=== PATIENT | female | born 1990 | race Caucasian/White ===

== ENCOUNTER → 2023-05-27 08:59 | Outpatient (REF) | payer OTHER, SELFPAY ==
--- NOTE | 2023-05-28 15:06 | EEG.RPT ---
Electroencephalogram Report
Recording
Date of EE05/27/23
Type of EEG: Ambulatory
Length of EEG recordin hours 41 minutes
Done with Video Recording: Yes
Patient Status: Outpatient
Recording Conditions: Awake and Drowsy
Hyperventilation Performed: Yes
Photic Stimulation Performed: No
Hand Dominance: Unknown
Report
AMBULATORY EEG SUMMARY
METHODS:
A 21 channel digitized electroencephalogram (EEG) was initiated in the [facility] Laboratory. The patient wore the device outside of the laboratory and returned after 24 hours for electrode and recorder removal.� The 10/20
international system of electrode placement was used with bipolar electrode montage recorded.� ECG was monitored. Duration was 11 hours and 41 minutes, after which there is no further EEG data.
IMPRESSION(S):
Quality
Good
Background
Mixed medium amplitude background of theta and alpha background in awake states
In maximal wakefulness there was a normal posterior dominant rhythm of 9-10 hz which attenuates with eye opening.
No background asymmetry noted.
Sleep
Drowsiness was suggested by slowing of the background rhythms
Stage I sleep was recorded
ECG:
Normal sinus rhythm
Photic stimulation
No activation
Abnormalities
None seen, no electrographic seizures or interical epileptiform discharges seen
Patient logs
During period of out with friends and not responding there were no epileptiform changes or electrographic seizure activity seen
During periods of losing track of time no epileptiform changes or electrographic seizure activity seen.
EEG CONCLUSION(S):
Unremarkable EEG for age during awake, drowsy, and sleeping states. No activation during photic stimulation.
CLINICAL CORRELATION:
A normal EEG may not rule out a diagnosis of epilepsy.
Noted periods in patient's logs of poor responsiveness and losing track of time did not show any epileptiform activity or electrographic seizure.
Clinical correlation required.
== END ==
LOC: RCS 08:59
PROVIDERS: ATTENDING PHYSICIAN Nurse Practitioner Adult Health; FAMILY PHYSICIAN Student in an Organized Health Care Education/Training Program
DX: R56.9 Unspecified convulsions (principal)
CPT/HCPCS: 95708

== ENCOUNTER 2023-05-27 17:55 | Emergency (ER) | payer OTHER, SELFPAY ==
[2023-05-27 17:58] VITALS: BP 155/114
[2023-05-27 18:17] LABS: Urine Albumin Trace (Neg - Trace); Urine Bilirubin Negative (Negative); Urine Character Slightly Cloudy (Clear); Urine Glucose 3+ (Negative); Urine Ketone Negative (Negative); Urine Leukocyte 2+ (Negative); Urine Nitrite Negative (Negative); Urine Occult Blood 4+ (Negative); Urine Urobilinogen Negative (Neg - 1+)
[2023-05-27 18:18] LABS: Urine Color Pink
[2023-05-27 18:20] LABS: HCG, Urine Qualitative Screen Negative
[2023-05-27 18:21] VITALS: BMI 34.9
[2023-05-27 18:26] VITALS: BP 137/99
[2023-05-27 18:32] LABS: Urine Squamous Cell >30 /LPF (Few)
[2023-05-27 18:34] LABS: Urine Red Blood Cell 16-20 /HPF (0-2)
[2023-05-27 18:35] LABS: Urine Bacteria Many (Negative)
[2023-05-27 18:36] LABS: Urine Yeast Few (Negative)
[2023-05-27 18:38] LABS: Urine Mucus Few
[2023-05-27 18:39] LABS: Urine Amorphous Seen
[2023-05-27 19:07] VITALS: BP 132/95
[2023-05-27 20:00] VITALS: BP 143/96
--- NOTE | 2023-05-27 20:10 | ED.GENMED ---
History of Present Illness
General
Chief Complaint: Seizure
Source: patient and family
Time Seen by Provider: 05/27/23 19:55
Travel History
Have you had any contact with someone who has COVID-19?: No
Do you have any symptoms of coronavirus? Fever > 100 degrees, chills, cough, shortness of breath, sore throat, loss of taste or smell, muscle aches, or headache?: No
History of Present Illness
History of Present Illness:
32-year-old female presents to the emergency room with her mom for evaluation after having an episode of staring and not responding to friends. Patient has been having similar episodes such as this. She is presently wearing a 24-hour EEG monitor
to evaluate these episodes. Patient also complaining of a headache. She states she has a history of migraines. She did not take medication for migraine because it is at home. EEG was ordered by neurology here. No episodes since this event while
she was out to lunch with friends.
Past History
Past History
ED Past Medical History: GERD, HTN, Seizures, Psychiatric (Anxiety, Depression, PTSD) and Other (absent Seizures, Migraines, Gastroparesis, UTI, Eczema, Anemia, )
ED Past Surgical History: None
Patient has exhibited threatening behavior?: No
PSI?: No
Social History
Tobacco: Non-smoker
Alcohol: Occasional
Drug: None
Personal: Single
Living: with family
Employment: Not employed
Family History
Family History: CAD
Phy Exam
Physical Exam
Physical Exam:
General: Awake, Alert, Oriented X3. No acute distress, flat affect
Vitals: unremarkable
Head: Atraumatic, EEG leads in place.
Eyes: Pupils equal, EOMI
Throat: Airway intact, no exudates
Neck: Trachea midline
Lungs: Clear and equal b/l
Heart: Regular rate, no murmurs
Abd: Soft, Nontender, No pulsatile mass
Neuro: Cranial nerves intact, muscle strength equal bilaterally, cerebellar exam normal
Skin: Warm, dry, no rash
Extremities: pulses equal b/l, no edema
Course
Orders/Labs/Results
Orders:
Orders
05/27/23 18:05
Test Result ONCE
05/27/23 18:09
, Urine Qualitative Screen [HCG, Urine Qualitative Screen] Urgent
Date Specimen was Collected: 05/27/23
Time Specimen was Collected: 18:05
Urinalysis Reflex To Culture Urgent
Date Specimen was Collected: 05/27/23
Time Specimen was Collected: 18:05
Urine Microscopic Reflex Cult Urgent
Urine Culture Urgent
YVETTE Source: U
Specimen Description:
Date Specimen was Collected: 05/27/23
Time Specimen was Collected: 18:05
05/27/23 20:08
Rizatriptan Orally Disintegrat [Maxalt Pack Out Operator (Orally Disintegrating)] 10 mg PO ONCE ONE
05/27/23 20:19
Complete Blood Count/With Diff Urgent
Comprehensive Metabolic Panel Urgent
Depakane Urgent
Abnormal Lab Results
05/27/23 05/27/23
18:09 20:19
Hct 35.8 L %
(37.0-47.0)
Absolute Lymphs (auto) 3.7 H 10^3/uL
(1.2-3.4)
Glucose 161 H mg/dl
(70-99)
Ur Occult Blood Reflex 4+ A
(Negative)
Leukocyte Esterase Rfl 2+ A
(Negative)
Urine RBC 16-20 A /HPF
(0-2)
Urine Bacteria (Reflex) Many A
(Negative)
Urine Yeast Few A
(Negative)
Urine Glucose 3+ A
(Negative)
Valproic Acid 11.2 L ug/ml
(50.0-120.0)
05/27/23 20:19
05/27/23 20:19
Vital Signs
Initial and Last Documented VS:
Initial Vital Signs
Temp Pulse Resp BP Pulse Ox
98.2 F 93 18 155/114 98
05/27/23 17:58 05/27/23 17:58 05/27/23 17:58 05/27/23 17:58 05/27/23 17:58
Last Documented Vital Signs
Temp Pulse Resp BP Pulse Ox
98.2 F 91 18 143/96 97
05/27/23 17:58 05/27/23 20:30 05/27/23 20:30 05/27/23 20:00 05/27/23 20:30
MDM/Problems Addressed
Differential Diagnosis Includes:
Absence seizure's, pseudoseizure,
MDM/Problems Addressed:
Patient has no acute abnormalities on neurologic exam. She was complaining of a headache which did improve with Maxalt. Patient has a 24-hour EEG on. This will have to be downloaded to determine if today's event was truly a seizure. However she
appears quite comfortable and stable and can follow-up as an outpatient.
*Pulse Oximetry
Patient hypoxic: no
*Critical Care Note
Total Time (30-74mins, 75-104mins- exclusive of procedures): Not Applicable
Data Reviewed
Review of Other/Old Records Reveals: Other (Neurology office notes. Document history of nonepileptic events.)
Patient Management
Social determinants of health affecting care: Strong social support
ED Attending Note
-
Portions of this chart may have been created with voice recognition software.� Occasional wrong word or��sound alike� substitutions may have occurred due to the inherent limitations of voice recognition software.
Discharge Plan
Departure
Patient Disposition: Home (Routine Discharge)
Date of Disposition: 05/27/23
Time of Disposition: 21:27
Patient with high blood pressure during this ER visit?: Yes
Condition: Good
Discharge Problem:
brief alteration in alertness
Instructions: Seizures, Adult (DC), BLOOD PRESSURE
Prescriptions:
No Action
insulin glargine [Lantus Solostar U-100 Insulin] 300 UNITS/3 ML insulin pen
8 units SC HS
Rx Instructions:
SSI
glipizide 5 mg Tablet
5 mg PO BID
losartan 50 mg Tablet
50 mg PO HS
omeprazole 20 mg Capsule,Delayed Release(Dr/Ec)
20 mg PO DAILY
aripiprazole [Abilify] 10 mg Tablet
10 mg PO DAILY
hydroxyzine HCl 25 mg Tablet
25 mg PO DAILY
ondansetron [Zofran ODT] 4 mg Tablet,Disintegrating
4 mg PO PRN PRN (Reason: nausea)
duloxetine [Cymbalta] 60 mg Capsule,Delayed Release(Dr/Ec)
60 mg PO DAILY
divalproex 250 mg tablet,delayed release (DR/EC)
500 mg PO HS
divalproex 500 mg tablet,delayed release (DR/EC)
500 mg PO HS
ondansetron 4 mg tablet,disintegrating
4 mg PO Q8H PRN (Reason: nausea and vomiting) 3 Days Qty: 9 0RF
divalproex [Depakote] 500 mg tablet,delayed release (DR/EC)
500 mg PO TID Qty: 90 0RF
Referrals:
Debby Christianson MD [Family Provider] -
Activity Restrictions/Additional Instructions:
I am not sure the episode today was a seizure but your neurologist can download your eeg and see if there were any changes consistent with a seizure.
Interventions
Interventions:
*Risk Screen - Suicide Last Done: 05/27/23 17:58
*General Assessment Last Done: 05/27/23 17:58
*Neglect/Abuse Screening Last Done: 05/27/23 17:58
ED- Fall Risk Assessment Last Done: 05/27/23 18:51
*ED COVID-19 Vaccine History Last Done: 05/27/23 18:04
*Nursing Disposition Last Done: 05/27/23 21:42
ED- Cardiac Assessment Last Done: 05/27/23 18:21
ED- Neurological Assessment Last Done: 05/27/23 18:21
ED- Pulmonary Assessment Last Done: 05/27/23 18:21
Discharge Date and Time
Discharge Date/Time: 05/27/23 21:43
[2023-05-27 20:25] LABS: % Basophils 0.4 % (0-2); % Eosinophils 0.8 % (0-6); % Immature Granulocytes 0.2 % (0-0.5); % Lymphocytes 44.1 % (20.5-51.1); % Monocytes 7.2 % (1.7-9.3); % Neutrophils 47.3 % (42.2-75.2); Absolute Eosinophils 0.1 10^3/uL (0-0.7); Absolute Lymphocytes 3.7 10^3/uL (1.2-3.4); Absolute Monocytes 0.6 10^3/uL (0.1-0.6); Hematocrit 35.8 % (37.0-47.0); Mean Corp Hgb Conc. 36.3 g/dL (33.0-37.0); Mean Corpuscular Hgb 30.6 pg (27.0-31.0); Mean Corpuscular Volume 84.2 fL (81.0-99.0); Mean Platelet Volume 8.8 fL (7.4-10.4); Nucleated Red Blood Cells % 0 %; Platelet Count 334 10^3/uL (130-400); Red Blood Cell Count 4.25 10^6/uL (4.20-5.40); Red Cell Dist. Width 12.8 % (11.5-14.5); White Blood Cell Count 8.4 10^3/uL (4.8-10.8)
[2023-05-27] MEDS: MAXALT MLT (ORALLY DISINTEGRATING) 10 MG PO (20:31)
[2023-05-27 20:42] LABS: ALT (SGPT) 12 U/L (0-35); AST (SGOT) 17 U/L (14-36); Albumin 3.8 g/dl (3.5-5.0); Alkaline Phosphatase 58 U/L (38-126); Blood Urea Nitrogen 15 mg/dl (7-17); Calcium 9.6 mg/dl (8.4-10.2); Carbon Dioxide 27 mmol/L (22-30); Chloride 98 mmol/L (98-107); Estimated Creatinine Clearance > 125 ml/min; Glucose 161 mg/dl (70-99); Potassium 3.9 mmol/L (3.5-5.1); Sodium 136 mmol/L (135-145); Total Bilirubin 0.4 mg/dl (0.2-1.3); Total Protein 6.5 g/dl (6.3-8.2); eGFR > 60.00
[2023-05-27 20:48] LABS: Depakane 11.2 ug/ml (50.0-120.0)
== END 2023-05-27 21:43 | disposition home or self-care (01) ==
LOC: EMR 17:55
PROVIDERS: Emergency Medicine; EMERGENCY PHYSICIAN Emergency Medicine; FAMILY PHYSICIAN Student in an Organized Health Care Education/Training Program
DX: R40.4 Transient alteration of awareness (principal); R51.9 Headache, unspecified; R56.9 Unspecified convulsions; I10 Essential (primary) hypertension
CPT/HCPCS: 99283; 80053; 80164; 81003; 81015; 81025; 85025; 87086

== ENCOUNTER 2023-06-05 22:14 | Emergency (ER) | payer OTHER, SELFPAY ==
[2023-06-05 22:17] VITALS: BP 139/100
[2023-06-05 23:12] LABS: Glucose - Point of Care 317 mg/dl (70-99)
--- NOTE | 2023-06-06 00:08 | ED.GENMED ---
History of Present Illness
General
Chief Complaint: Suicidal Ideation
Source: patient, previous hospital records (Several recent ED visits with concerns for absence seizures versus pseudoseizure; hyperglycemia without DKA) and other (302 petition filed by mother)
Exam Limitations: none
Time Seen by Provider: 06/05/23 22:18
Nursing documentation reviewed up to this point in time: agreed with
Travel History
Have you had any contact with someone who has COVID-19?: No
Do you have any symptoms of coronavirus? Fever > 100 degrees, chills, cough, shortness of breath, sore throat, loss of taste or smell, muscle aches, or headache?: No
History of Present Illness
History of Present Illness:
This is a 32-year-old female with history of insulin requiring diabetes, history of anxiety/depression, history of absence seizure's. He resides at home with her parents.
She admits to significant ongoing stress along with recent break-up with her boyfriend. She voiced to her mother geena that she wanted to kill herself but no definitive plan and no prior history of suicide attempt.
Mom filed 302 tonight.
Patient has history of voicing similar wish without specific plans and again, no prior history of suicide attempt.
She has had previous 302 commitment most recently July 2022.
More recently she has completed a partial program at [facility] and currently sees a counselor once a week through [facility].
She adamantly denies suicidal thoughts or plan and is unsure why she stated she wanted to kill herself geena.
She does admit to moderate ongoing stress and believes she would benefit with increased counseling weekly and would be agreeable to resuming partial program at [facility].
She denies alcohol nor drug use.
She denies risk of , last menstrual period May 24, normal and on time.
She does admit that her blood sugars 'have been up-and-down' sometimes in the 300s. No prior history of DKA. No recent URIs.
She follows with an central service tech.
She also follows with neurology, Dr. Diaz with concern for [place] seizures.
She wore a 24-hour EEG May 27. Thus far has not received results.
Past History
Past History
ED Past Medical History: GERD, HTN, Seizures, Psychiatric (Anxiety, Depression, PTSD) and Other (absent Seizures, Migraines, Gastroparesis, UTI, Eczema, Anemia, )
ED Past Surgical History: None
Patient has exhibited threatening behavior?: No
PSI?: No
Social History
Tobacco: Non-smoker
Alcohol: Occasional
Drug: None
Personal: Single
Living: with family
Employment: Not employed
Family History
Family History: CAD
Phy Exam
Physical Exam
Physical Exam:
GENERAL: Alert , in no apparent distress. 32-year-old woman appears her stated age, awake and alert, pleasant, appears in no acute distress. Sitting a pink colored, liquid drink and a large Angelica cup.
EYE: anicteric
NECK: Supple, nontender, no meningismus, no significant adenopathy.
ENT: oral mucosa is moist. mo rhinorrhea.
CARDIAC: Regular rate and rhythm. no murmur.
LUNGS: Clear breath sounds bilaterally, no acute respiratory distress, no wheezes/rales/rhonchi
ABDOMEN: Soft, nondistended, without focal tenderness, no r/g, normoactive BS.
NEUROLOGICAL: Alert and oriented x3, no focal neuro deficits. Gait is philip and steady.
SKIN: Warm and dry, normal color, skin intact. No rash.
MUSCULOSKELETAL: No C/C/E. peripheral pulses are full and equal b/l. No palpable tenderness.
PSYCH: Mildly blunted affect. Adamantly denies suicidal thoughts or plan. Admits to moderate ongoing stress but is goal oriented. Speech is clear.
Course
Orders/Labs/Results
Orders:
Orders
06/05/23 23:04
Bedside Glucose- Treatment ONCE
02/14/24 23:51
Insulin Aspart [NOVOLOG vial] 5 units SC NOW STA
Insulin Glargine Lantus [Lantus] 0 units Subcutaneous Insulin Syringe [Syringe-Insulin] 0 unit SC NOW
Abnormal Lab Results
06/05/23
23:10
POC Glucose 317 H mg/dl
(70-99)
Vital Signs
Initial and Last Documented VS:
Initial Vital Signs
Temp Pulse Resp BP Pulse Ox
97.5 F 95 18 139/100 95
06/05/23 22:17 06/05/23 22:17 06/05/23 22:17 06/05/23 22:17 06/05/23 22:17
Last Documented Vital Signs
Temp Pulse Resp BP Pulse Ox
97.5 F 95 18 139/100 95
06/05/23 22:17 06/05/23 22:17 06/05/23 22:17 06/05/23 22:17 06/05/23 22:17
MDM/Problems Addressed
Differential Diagnosis Includes:
Patient presents for involuntary psychiatric evaluation after voicing wish without definitive plan.
History of similar in the past, again without definitive plan and no prior history of suicide attempts.
She continues to adamantly denies suicidal thoughts nor plan.
She does have longstanding history of anxiety, depression, PTSD, currently follows with [facility] with recent completion of outpatient partial program at [facility].
Awaiting telepsychiatry evaluation.
Patient has history of insulin requiring diabetes, generally poorly controlled with random blood sugars running in the 200s to 300s.
Unremarkable laboratory studies May 27 with blood sugar of 161, no evidence of acidosis May 27 as well as May 05 of this year and April 29 of this year.
She has history of epilepsy, absence seizures, following with neurology and recently underwent outpatient EEG. She is awaiting results.
No reports of recent seizure activity, at least over the past week. No recent falls.
Will check Accu-Chek now. At this point no indication for other laboratory studies.
*Critical Care Note
Total Time (30-74mins, 75-104mins- exclusive of procedures): Not Applicable
Update Note
Update Note:
06/06/2023 0015 AM
Patient continues to deny suicidal thoughts or plan.
She has been evaluated by telepsychiatrist who does not believe patient is a threat to herself and does not recommend upholding 302.
Parents are aware and en route to the hospital to take the patient home.
Patient is agreeable to partial program; [facility] crisis counselor has referred patient to [facility] for follow-up.
Accu-Chek moderately elevated at 317. Patient has had similar elevations noted previously in fact her random blood sugars generally run in the 200s to 300s. Previous labs have shown no evidence of acidosis and clinically patient is well in
appearance.
Recommend she follow-up with her PCP as well as central service tech regarding her diabetes. No indication for urgent correction/intervention at this time.
Follow-up with [facility] and continue with counseling at [facility].
ED Attending Note
-
Portions of this chart may have been created with voice recognition software.� Occasional wrong word or��sound alike� substitutions may have occurred due to the inherent limitations of voice recognition software.
Discharge Plan
Departure
Patient Disposition: Home (Routine Discharge)
Date of Disposition: 06/06/23
Time of Disposition: 00:19
Patient with high blood pressure during this ER visit?: No
Condition: Good
Discharge Problem:
involuntary psychiatric evaluation, Poorly controlled diabetes mellitus
Instructions: Carb counting for adults with diabetes, Suicide Prevention
Prescriptions:
No Action
insulin glargine [Lantus Solostar U-100 Insulin] 300 UNITS/3 ML insulin pen
8 units SC HS
Rx Instructions:
SSI
glipizide 5 mg Tablet
5 mg PO BID
losartan 50 mg Tablet
50 mg PO HS
omeprazole 20 mg Capsule,Delayed Release(Dr/Ec)
20 mg PO DAILY
aripiprazole [Abilify] 10 mg Tablet
10 mg PO DAILY
hydroxyzine HCl 25 mg Tablet
25 mg PO DAILY
ondansetron [Zofran ODT] 4 mg Tablet,Disintegrating
4 mg PO PRN PRN (Reason: nausea)
duloxetine [Cymbalta] 60 mg Capsule,Delayed Release(Dr/Ec)
60 mg PO DAILY
divalproex 250 mg tablet,delayed release (DR/EC)
500 mg PO HS
divalproex 500 mg tablet,delayed release (DR/EC)
500 mg PO HS
ondansetron 4 mg tablet,disintegrating
4 mg PO Q8H PRN (Reason: nausea and vomiting) 3 Days Qty: 9 0RF
divalproex [Depakote] 500 mg tablet,delayed release (DR/EC)
500 mg PO TID Qty: 90 0RF
Referrals:
Debby Christianson MD [Family Provider] - Call in 1-3 days for appt
Interventions
Interventions:
*Risk Screen - Suicide Last Done: 06/05/23 22:17
*General Assessment Last Done: 06/05/23 22:17
*Neglect/Abuse Screening Last Done: 06/05/23 22:17
*ED COVID-19 Vaccine History Last Done: 06/05/23 22:17
*Nursing Disposition Last Done: 06/06/23 00:40
ED-Psychological Assessment Last Done: 06/05/23 22:54
Discharge Date and Time
Discharge Date/Time: 06/06/23 00:41
== END 2023-06-06 00:41 | disposition home or self-care (01) ==
LOC: EMR 22:14
PROVIDERS: EMERGENCY PHYSICIAN Emergency Medicine; FAMILY PHYSICIAN Student in an Organized Health Care Education/Training Program
DX: R45.851 Suicidal ideations (principal); E11.65 Type 2 diabetes mellitus with hyperglycemia; Z73.3 Stress, not elsewhere classified; F32.A Depression, unspecified; F41.9 Anxiety disorder, unspecified; G40.A09 Absence epileptic syndrome, not intractable, without status epilepticus; I10 Essential (primary) hypertension; K21.9 Gastro-esophageal reflux disease without esophagitis; G43.909 Migraine, unspecified, not intractable, without status migrainosus; F43.10 Post-traumatic stress disorder, unspecified; K31.84 Gastroparesis; D64.9 Anemia, unspecified; Z79.4 Long term (current) use of insulin; Z87.440 Personal history of urinary (tract) infections; Z88.8 Allergy status to other drugs, medicaments and biological substances
CPT/HCPCS: 99284; 82962

== ENCOUNTER 2023-06-08 05:59 | Emergency (ER) | payer OTHER, SELFPAY ==
[2023-06-08 05:59] VITALS: BMI 31.8
[2023-06-08 06:14] VITALS: BP 145/101
[2023-06-08 06:40] LABS: Glucose - Point of Care 310 mg/dl (70-99)
--- NOTE | 2023-06-08 06:58 | ED.GENMED ---
History of Present Illness
General
Chief Complaint: Blood Sugar Problem
Source: patient
Time Seen by Provider: 06/08/23 06:30
Travel History
Have you had any contact with someone who has COVID-19?: No
Do you have any symptoms of coronavirus? Fever > 100 degrees, chills, cough, shortness of breath, sore throat, loss of taste or smell, muscle aches, or headache?: No
History of Present Illness
History of Present Illness:
32-year-old female presents to the emergency room with multiple complaints. She states her blood sugars have been high despite taking her insulin. She feels achy and nauseous and just unwell. Patient has not actually vomited. No known fever.
She is not short of breath.
Past History
Past History
ED Past Medical History: GERD, HTN, Seizures, Psychiatric (Anxiety, Depression, PTSD) and Other (absent Seizures, Migraines, Gastroparesis, UTI, Eczema, Anemia, )
ED Past Surgical History: None
Patient has exhibited threatening behavior?: No
PSI?: No
Social History
Tobacco: Non-smoker
Alcohol: Occasional
Drug: None
Personal: Single
Living: with family
Employment: Not employed
Family History
Family History: CAD
Phy Exam
Physical Exam
Physical Exam:
General: Awake, Alert, Oriented X3. No acute distress, appears chronically ill
Vitals: unremarkable
Head: Atraumatic
Eyes: Pupils equal, EOMI
Throat: Airway intact, no exudates
Neck: Trachea midline
Lungs: Clear and equal b/l
Heart: Regular rate, no murmurs
Abd: Soft, Nontender, No pulsatile mass
Neuro: Nonfocal
Skin: Warm, dry, no rash
Extremities: pulses equal b/l, no edema
Course
Orders/Labs/Results
Orders:
Orders
06/08/23 06:53
0.9% Sodium Chloride 1000 ml [Nss] 1,000 ml IV BOLUS
06/08/23 06:54
Test Result ONCE
06/08/23 07:08
Basic Metabolic Panel Urgent
COVID-19 Antigen Urgent
Source: Nasal Swab
Complete Blood Count/With Diff Urgent
HCG, Serum Qualitative Screen Urgent
Influenza A+B Rapid Molecular Urgent
YVETTE Source: Nasal Swab
Specimen Description:
Abnormal Lab Results
06/08/23 06/08/23 06/08/23
06:38 07:08 08:53
Hct 36.9 L %
(37.0-47.0)
Sodium 131 L mmol/L
(135-145)
Glucose 324 H mg/dl
(70-99)
POC Glucose 310 H mg/dl 279 H mg/dl
(70-99) (70-99)
06/08/23 07:08
06/08/23 07:08
Vital Signs
Initial and Last Documented VS:
Initial Vital Signs
Temp Pulse Resp BP Pulse Ox
98.8 F 94 18 145/101 95
06/08/23 06:14 06/08/23 06:14 06/08/23 06:14 06/08/23 06:14 06/08/23 06:14
Last Documented Vital Signs
Temp Pulse Resp BP Pulse Ox
98.8 F 94 18 123/82 100
06/08/23 06:14 06/08/23 06:14 06/08/23 06:14 06/08/23 08:05 06/08/23 08:45
MDM/Problems Addressed
Differential Diagnosis Includes:
DKA, COVID, influenza, other viral syndrome, dehydration
MDM/Problems Addressed:
Patient has normal white count, normal anion gap. Glucose is mildly elevated at 324. However no evidence of DKA. Father came to visit with patient. She became upset about her mother not being here. Patient pulled out her IV and down demanding
to leave. No reason to keep her against her well.
*Pulse Oximetry
Patient hypoxic: no
*Critical Care Note
Total Time (30-74mins, 75-104mins- exclusive of procedures): Not Applicable
ED Attending Note
-
Portions of this chart may have been created with voice recognition software.� Occasional wrong word or��sound alike� substitutions may have occurred due to the inherent limitations of voice recognition software.
Discharge Plan
Departure
Patient Disposition: Home (Routine Discharge)
Date of Disposition: 06/08/23
Time of Disposition: 09:07
Patient with high blood pressure during this ER visit?: No
Condition: Good
Discharge Problem:
Hyperglycemia
Prescriptions:
No Action
insulin glargine [Lantus Solostar U-100 Insulin] 300 UNITS/3 ML insulin pen
8 units SC HS
Rx Instructions:
SSI
glipizide 5 mg Tablet
5 mg PO BID
losartan 50 mg Tablet
50 mg PO HS
omeprazole 20 mg Capsule,Delayed Release(Dr/Ec)
20 mg PO DAILY
aripiprazole [Abilify] 10 mg Tablet
10 mg PO DAILY
hydroxyzine HCl 25 mg Tablet
25 mg PO DAILY
ondansetron [Zofran ODT] 4 mg Tablet,Disintegrating
4 mg PO PRN PRN (Reason: nausea)
duloxetine [Cymbalta] 60 mg Capsule,Delayed Release(Dr/Ec)
60 mg PO DAILY
divalproex 250 mg tablet,delayed release (DR/EC)
500 mg PO HS
divalproex 500 mg tablet,delayed release (DR/EC)
500 mg PO HS
ondansetron 4 mg tablet,disintegrating
4 mg PO Q8H PRN (Reason: nausea and vomiting) 3 Days Qty: 9 0RF
divalproex [Depakote] 500 mg tablet,delayed release (DR/EC)
500 mg PO TID Qty: 90 0RF
Referrals:
Iwona Alvarez DO [Family Provider] -
Interventions
Interventions:
*Risk Screen - Suicide Last Done: 06/08/23 06:52
*General Assessment Last Done: 06/08/23 06:14
*Neglect/Abuse Screening Last Done: 06/08/23 06:52
ED- Fall Risk Assessment Last Done: 06/08/23 06:14
*ED COVID-19 Vaccine History Last Done: 06/08/23 06:14
*Nursing Disposition Last Done: 06/08/23 09:10
ED- Neurological Assessment Last Done: 06/08/23 06:52
Discharge Date and Time
Discharge Date/Time: 06/08/23 09:11
[2023-06-08 07:05] VITALS: BP 124/87
[2023-06-08] MEDS: NSS 1000 IV (07:11)
[2023-06-08 07:23] LABS: % Basophils 0.6 % (0-2); % Eosinophils 0.6 % (0-6); % Immature Granulocytes 0.3 % (0-0.5); % Lymphocytes 30.4 % (20.5-51.1); % Monocytes 6.9 % (1.7-9.3); % Neutrophils 61.2 % (42.2-75.2); Absolute Monocytes 0.5 10^3/uL (0.1-0.6); Absolute Neutrophils 4.1 10^3/uL (1.4-6.5); Hematocrit 36.9 % (37.0-47.0); Mean Corp Hgb Conc. 35.2 g/dL (33.0-37.0); Mean Corpuscular Hgb 29.8 pg (27.0-31.0); Mean Corpuscular Volume 84.6 fL (81.0-99.0); Mean Platelet Volume 9.4 fL (7.4-10.4); Nucleated Red Blood Cells % 0 %; Platelet Count 300 10^3/uL (130-400); Red Blood Cell Count 4.36 10^6/uL (4.20-5.40); Red Cell Dist. Width 12.5 % (11.5-14.5); White Blood Cell Count 6.7 10^3/uL (4.8-10.8)
[2023-06-08 07:28] LABS: HCG, Serum Qualitative Screen Negative
[2023-06-08 07:30] LABS: Blood Urea Nitrogen 15 mg/dl (7-17); Calcium 9.3 mg/dl (8.4-10.2); Carbon Dioxide 27 mmol/L (22-30); Chloride 100 mmol/L (98-107); Estimated Creatinine Clearance > 125 ml/min; Glucose 324 mg/dl (70-99); Potassium 4.6 mmol/L (3.5-5.1); Sodium 131 mmol/L (135-145); eGFR > 60.00
[2023-06-08 08:05] VITALS: BP 123/82
[2023-06-08 08:13] LABS: COVID-19 Antigen Negative (Negative)
[2023-06-08 08:55] LABS: Glucose - Point of Care 279 mg/dl (70-99)
== END 2023-06-08 09:11 | disposition home or self-care (01) ==
LOC: EMR 05:59
PROVIDERS: EMERGENCY PHYSICIAN Emergency Medicine; FAMILY PHYSICIAN Family Medicine
DX: E11.65 Type 2 diabetes mellitus with hyperglycemia (principal)
CPT/HCPCS: 99284; 96360; 80048; 82962; 84703; 85025; 87502; 87811

== ENCOUNTER 2023-08-03 09:17 | Emergency (ER) | payer OTHER, SELFPAY ==
[2023-08-03 09:19] VITALS: BP 148/102
[2023-08-03 09:23] LABS: Glucose - Point of Care 163 mg/dl (70-99)
[2023-08-03 09:54] VITALS: BMI 33.2
--- NOTE | 2023-08-03 10:02 | ED.GENMED ---
History of Present Illness
General
Chief Complaint: Blood Sugar Problem
Source: patient and family
Time Seen by Provider: 08/03/23 09:29
Travel History
Have you had any contact with someone who has COVID-19?: No
Do you have any symptoms of coronavirus? Fever > 100 degrees, chills, cough, shortness of breath, sore throat, loss of taste or smell, muscle aches, or headache?: No
History of Present Illness
History of Present Illness:
32-year-old female with past medical history of insulin-dependent diabetes, hypertension, migraine disorder, GERD, anxiety/depression/PTSD presenting to the emergency department for evaluation of nausea/vomiting that started this morning. Patient
has been concerned because her blood sugars have been more elevated than usual noting that she has had readings as high as 340. She is also noted polyuria and polydipsia with this. Triage noted that patient was recently at [facility]
however upon questioning patient states that this was more due to psychiatric illness as opposed to complications from her diabetes although she did note that her blood sugars were difficult to control while she was at [facility]. Patient denies
any fevers, chills, rigors, dysuria, cloudy or dark urine/malodorous urine, chest pain, shortness of breath or any other concerns
Past History
Past History
ED Past Medical History: GERD, HTN, Seizures, Psychiatric (Anxiety, Depression, PTSD) and Other (absent Seizures, Migraines, Gastroparesis, UTI, Eczema, Anemia, )
ED Past Surgical History: None
Patient has exhibited threatening behavior?: No
PSI?: No
Social History
Tobacco: Non-smoker
Alcohol: Occasional
Drug: None
Personal: Single
Living: with family
Employment: Not employed
Family History
Family History: CAD
Review of Systems
Review of Systems
All Other Systems: ROS reviewed and negative except as documented in HPI and ROS
Phy Exam
Physical Exam
Physical Exam:
GENERAL: Alert , in no apparent distress but does have an anxious affect
EYE: clear conjunctiva b/l
HEAD: NCAT
ENT: o/p clr, mmm.
CARDIAC: Regular rate and rhythm .
LUNGS: Clear breath sounds bilaterally, no acute respiratory distress, no wheezes/rales/rhonchi
ABDOMEN: Soft, without focal tenderness, no r/g, no cvat
NEUROLOGICAL: Alert and oriented
SKIN: Warm and dry, skin intact.
MUSCULOSKELETAL: No edema, well perfused.
PSYCH: Normal and appropriate interaction.
Scores
Heart Failure Risk
Heart Failure Risk Score: Not Applicable
Heart Score for Chest Pain Patients
STEMI patient?: Not applicable
Withdrawal Assessment of Alcohol
Withdrawal Assessment Completed?: Not applicable
Course
Orders/Labs/Results
Orders:
Orders
08/03/23 09:53
0.9% Sodium Chloride 1000 ml [Nss] 1,000 ml IV BOLUS
Ondansetron Injectable [Zofran] 4 mg IV NOW STA
08/03/23 09:54
Test Result ONCE
08/03/23 10:30
Complete Blood Count/With Diff Urgent
Comprehensive Metabolic Panel Urgent
HCG, Serum Qualitative Screen Urgent
Lipase Urgent
TSH Urgent
Urinalysis Reflex To Culture Urgent
Date Specimen was Collected: 08/03/23
Time Specimen was Collected: 10:03
Urine Microscopic Reflex Cult Urgent
Urine Culture Urgent
YVETTE Source: U
Specimen Description:
Date Specimen was Collected: 08/03/23
Time Specimen was Collected: 10:03
Abnormal Lab Results
08/03/23 08/03/23
09:22 10:30
BUN 20 H mg/dl
(7-17)
Creatinine 0.5 L mg/dL
(0.6-1.0)
Glucose 125 H mg/dl
(70-99)
Urine Ketones 1+ A
(Negative)
Leukocyte Esterase Rfl Trace A
(Negative)
Urine Bacteria (Reflex) Moderate A
(Negative)
Urine Yeast Moderate A
(Negative)
Urine Glucose Trace A
(Negative)
POC Glucose 163 H mg/dl
(70-99)
08/03/23 10:30
08/03/23 10:30
Vital Signs
Initial and Last Documented VS:
Initial Vital Signs
Temp Pulse Resp BP Pulse Ox
98.4 F 109 18 148/102 98
08/03/23 09:19 08/03/23 09:19 08/03/23 09:19 08/03/23 09:19 08/03/23 09:19
Last Documented Vital Signs
Temp Pulse Resp BP Pulse Ox
98.4 F 91 14 116/73 99
08/03/23 09:19 08/03/23 12:59 08/03/23 12:59 08/03/23 12:59 08/03/23 12:59
MDM/Problems Addressed
Differential Diagnosis Includes:
DKA, HHNK, urinary tract infection, exacerbation of diabetic gastroparesis, anxiety/depression
MDM/Problems Addressed:
32-year-old female present emergency department for evaluation of nausea and vomiting that occurred this morning, patient concern for possible diabetic complication since her blood sugars have been elevated over the last few weeks. Recent admit for
psychiatric illness at [facility] but was discharged 2 weeks ago. Patient reports good compliance with her insulin. On arrival here [id number] glucose is 163. Patient notes that she did take her insulin this morning prior to coming to the
emergency department. Will check labs, urinalysis, hCG. Fluids and Zofran ordered for symptomatic control. Reassessment following.
Chronic conditions affecting care: DM
Acute Exacerbation and/or Progression of Chronic Illness: DM
*Pulse Oximetry
Patient hypoxic: no
*Critical Care Note
Total Time (30-74mins, 75-104mins- exclusive of procedures): Not Applicable
Data Reviewed
Review of Other/Old Records Reveals: Labs and Records
Source: patient, records and family
Patient Management
Escalation/DeEscalation of care consider admission/obs:
Patient continuing to rest comfortably. Her labs are reassuring without any signs of anion gap acidosis. Blood sugar is mildly elevated however I do not have concern for DKA/HHNK. Patient was able to tolerate p.o. I suspect gastroparesis was
likely cause for nausea/vomiting. She will follow-up with primary care provider. Aware of return precautions to the emergency department.
ED Attending Note
-
Portions of this chart may have been created with voice recognition software.� Occasional wrong word or��sound alike� substitutions may have occurred due to the inherent limitations of voice recognition software.
Discharge Plan
Departure
Patient Disposition: Home (Routine Discharge)
Date of Disposition: 08/03/23
Time of Disposition: 11:54
Patient with high blood pressure during this ER visit?: Yes
Discharge Problem:
Nausea and vomiting, Diabetes mellitus
Instructions: Type 2 Diabetes (DC)
Prescriptions:
No Action
insulin glargine [Lantus Solostar U-100 Insulin] 300 UNITS/3 ML insulin pen
8 units SC HS
Rx Instructions:
SSI
glipizide 5 mg Tablet
5 mg PO BID
losartan 50 mg Tablet
50 mg PO HS
omeprazole 20 mg Capsule,Delayed Release(Dr/Ec)
20 mg PO DAILY
aripiprazole [Abilify] 10 mg Tablet
10 mg PO DAILY
hydroxyzine HCl 25 mg Tablet
25 mg PO DAILY
ondansetron [Zofran ODT] 4 mg Tablet,Disintegrating
4 mg PO PRN PRN (Reason: nausea)
duloxetine [Cymbalta] 60 mg Capsule,Delayed Release(Dr/Ec)
60 mg PO DAILY
divalproex 250 mg tablet,delayed release (DR/EC)
500 mg PO HS
divalproex 500 mg tablet,delayed release (DR/EC)
500 mg PO HS
ondansetron 4 mg tablet,disintegrating
4 mg PO Q8H PRN (Reason: nausea and vomiting) 3 Days Qty: 9 0RF
divalproex [Depakote] 500 mg tablet,delayed release (DR/EC)
500 mg PO TID Qty: 90 0RF
Referrals:
Iwona Alvarez DO [Family Provider] -
Interventions
Interventions:
*Risk Screen - Suicide Last Done: 08/03/23 09:19
*General Assessment Last Done: 08/03/23 09:19
*Neglect/Abuse Screening Last Done: 08/03/23 09:19
Discharge Date and Time
Print Language: CYMRO
[2023-08-03] MEDS: NSS 1000 IV (10:35)
[2023-08-03] MEDS: ZOFRAN 4 MG IV (10:35)
[2023-08-03 10:44] LABS: % Basophils 0.6 % (0-2); % Eosinophils 0.5 % (0-6); % Immature Granulocytes 0.3 % (0-0.5); % Lymphocytes 35.4 % (20.5-51.1); % Monocytes 8.1 % (1.7-9.3); % Neutrophils 55.1 % (42.2-75.2); Absolute Lymphocytes 2.2 10^3/uL (1.2-3.4); Absolute Monocytes 0.5 10^3/uL (0.1-0.6); Absolute Neutrophils 3.5 10^3/uL (1.4-6.5); Hematocrit 38.8 % (37.0-47.0); Hemoglobin 13.6 g/dL (12.0-16.0); Mean Corp Hgb Conc. 35.1 g/dL (33.0-37.0); Mean Corpuscular Volume 85.5 fL (81.0-99.0); Mean Platelet Volume 8.8 fL (7.4-10.4); Nucleated Red Blood Cells % 0 %; Platelet Count 301 10^3/uL (130-400); Red Blood Cell Count 4.54 10^6/uL (4.20-5.40); Red Cell Dist. Width 12.8 % (11.5-14.5); Urine Albumin Negative (Neg - Trace); Urine Bilirubin Negative (Negative); Urine Character Clear (Clear); Urine Color Yellow; Urine Glucose Trace (Negative); Urine Ketone 1+ (Negative); Urine Leukocyte Trace (Negative); Urine Nitrite Negative (Negative); Urine Occult Blood Negative (Negative); Urine Urobilinogen Negative (Neg - 1+); White Blood Cell Count 6.3 10^3/uL (4.8-10.8)
[2023-08-03 10:56] LABS: Urine Mucus Moderate; Urine Squamous Cell >30 /LPF (Few)
[2023-08-03 10:57] LABS: Urine Bacteria Moderate (Negative); Urine Red Blood Cell 0-2 /HPF (0-2); Urine Yeast Moderate (Negative)
[2023-08-03 10:58] LABS: HCG, Serum Qualitative Screen Negative
[2023-08-03 11:02] LABS: ALT (SGPT) 14 U/L (0-35); AST (SGOT) 18 U/L (14-36); Albumin 4.5 g/dl (3.5-5.0); Alkaline Phosphatase 56 U/L (38-126); Blood Urea Nitrogen 20 mg/dl (7-17); Calcium 10.2 mg/dl (8.4-10.2); Carbon Dioxide 28 mmol/L (22-30); Chloride 100 mmol/L (98-107); Estimated Creatinine Clearance > 125 ml/min; Glucose 125 mg/dl (70-99); Sodium 136 mmol/L (135-145); Total Bilirubin 0.5 mg/dl (0.2-1.3); Total Protein 7.7 g/dl (6.3-8.2); eGFR > 60.00
[2023-08-03 11:15] LABS: Lipase 54 U/L (23-300)
[2023-08-03 11:43] LABS: TSH 1.36 uIU/ml (0.47-4.68)
[2023-08-03 12:59] VITALS: BP 116/73
== END 2023-08-03 11:25 | disposition home or self-care (01) ==
LOC: EMR 09:17
PROVIDERS: Physician Assistant Medical; EMERGENCY PHYSICIAN Emergency Medicine; FAMILY PHYSICIAN Family Medicine
DX: R11.2 Nausea with vomiting, unspecified (principal); E11.9 Type 2 diabetes mellitus without complications; I10 Essential (primary) hypertension; K21.9 Gastro-esophageal reflux disease without esophagitis; F41.9 Anxiety disorder, unspecified; F32.A Depression, unspecified; F43.10 Post-traumatic stress disorder, unspecified; R56.9 Unspecified convulsions; E11.43 Type 2 diabetes mellitus with diabetic autonomic (poly)neuropathy; K31.84 Gastroparesis; G43.909 Migraine, unspecified, not intractable, without status migrainosus; D64.9 Anemia, unspecified; L30.9 Dermatitis, unspecified; Z87.440 Personal history of urinary (tract) infections; Z79.4 Long term (current) use of insulin; Z88.8 Allergy status to other drugs, medicaments and biological substances
CPT/HCPCS: 99284; 96374; 96361; 80053; 81003; 81015; 82962; 83690; 84443; 84703; 85025; 87086

== ENCOUNTER 2023-08-04 21:16 | Emergency (ER) | payer OTHER, SELFPAY ==
[2023-08-04 21:17] VITALS: BP 126/92
[2023-08-04 21:37] LABS: % Basophils 0.4 % (0-2); % Eosinophils 0.7 % (0-6); % Immature Granulocytes 0.3 % (0-0.5); % Lymphocytes 33.1 % (20.5-51.1); % Monocytes 8.1 % (1.7-9.3); % Neutrophils 57.4 % (42.2-75.2); Absolute Eosinophils 0.1 10^3/uL (0-0.7); Absolute Monocytes 0.7 10^3/uL (0.1-0.6); Absolute Neutrophils 5.3 10^3/uL (1.4-6.5); Hematocrit 37.5 % (37.0-47.0); Hemoglobin 12.6 g/dL (12.0-16.0); Mean Corp Hgb Conc. 33.6 g/dL (33.0-37.0); Mean Corpuscular Hgb 29.8 pg (27.0-31.0); Mean Corpuscular Volume 88.7 fL (81.0-99.0); Mean Platelet Volume 9.1 fL (7.4-10.4); Nucleated Red Blood Cells % 0 %; Platelet Count 276 10^3/uL (130-400); Red Blood Cell Count 4.23 10^6/uL (4.20-5.40); White Blood Cell Count 9.2 10^3/uL (4.8-10.8)
[2023-08-04 22:00] LABS: ALT (SGPT) 14 U/L (0-35); AST (SGOT) 16 U/L (14-36); Albumin 4.2 g/dl (3.5-5.0); Alkaline Phosphatase 54 U/L (38-126); Blood Urea Nitrogen 18 mg/dl (7-17); Calcium 9.7 mg/dl (8.4-10.2); Carbon Dioxide 27 mmol/L (22-30); Chloride 99 mmol/L (98-107); Glucose 270 mg/dl (70-99); Potassium 4.2 mmol/L (3.5-5.1); Sodium 133 mmol/L (135-145); Total Bilirubin 0.3 mg/dl (0.2-1.3); eGFR > 60.00
[2023-08-04 23:01] VITALS: BP 117/93
[2023-08-04 23:22] VITALS: BMI 31.6
--- NOTE | 2023-08-04 23:28 | EDRN ---
Pt speaks in soft childlike voice with eyes downcast. Pt has been diabetic since 2020. Pt takes sliding scale insulin, last dose after she had lunch with a friend today. Pt has not been checking her blood sugar but says she usually does. Pt met
her friend for lunch and says the menu was so big and she couldn't read it so she got a burger and milkshake. Pt did not know there were salads on the menu until after she ate reportedly. Mother says she made chicken and vegetables for dinner but
pt would not eat them and had pizza instead. Pt got in the shower and felt hot so she made the water cold and felt like she was going to pass out so she got out of the shower and laid down. Pt says she was confused and did not feel well. Pt did
not check her blood sugar. 911 called. Pt says she was told by EMS personnel that her blood sugar was 299. Pt feels better now, not as hot. Pt says she knows she shouldn't eat what she did but says she has been under a lot of stress. Pt denies
cp, sob, abd pain, n/v.
[2023-08-04] MEDS: NSS 1000 IV (23:42)
[2023-08-05] VITALS: BP 109/82
--- NOTE | 2023-08-05 00:02 | ED.GENMED ---
History of Present Illness
General
Chief Complaint: Blood Sugar Problem
Source: patient
Exam Limitations: none
Time Seen by Provider: 08/04/23 23:00
Travel History
Have you had any contact with someone who has COVID-19?: No
Do you have any symptoms of coronavirus? Fever > 100 degrees, chills, cough, shortness of breath, sore throat, loss of taste or smell, muscle aches, or headache?: No
History of Present Illness
History of Present Illness:
This is a 32 year old female that was seen here on Saturday with similar issues. States that on Saturday she went out with friend and she was eating Hamburgs and milk shakes. States that she came home and took a shower and felt like she was going to
pass out. States that she got out of the shower and laid in her bed. States that she felt confused. States that she also eat Pizza tonight. States that she also had heart burn. Denies any fever, chest pain, SOB, abd pain, nausea, vomiting, diarrhea,
headache, dizziness, urinary burning.
Past History
Past History
ED Past Medical History: GERD, HTN, IDDM, Seizures, Psychiatric (Anxiety, Depression, PTSD) and Other (absent Seizures, Migraines, Gastroparesis, UTI, Eczema, Anemia, )
ED Past Surgical History: None and Gynecological (D&C)
Patient has exhibited threatening behavior?: No
PSI?: No
Social History
Tobacco: Non-smoker
Alcohol: Occasional
Drug: None
Personal: Single
Living: with family
Employment: Not employed
Family History
Family History: CAD
Review of Systems
Review of Systems
All Other Systems: ROS reviewed and negative except as documented in HPI and ROS
Constitutional: Reports no symptoms; Denies fever
EENT: Reports no symptoms
Respiratory: Reports no symptoms; Denies cough or trouble breathing
Cardiac: Denies chest pain
ABD/GI: Reports no symptoms; Denies abdominal pain, nausea, vomiting or diarrhea
: Reports no symptoms; Denies dysuria, frequency or urgency
Musculoskeletal: Reports no symptoms
Skin: Reports no symptoms
Neurological: Reports no symptoms; Denies dizzy or headache
Psychiatric: Reports no symptoms
Phy Exam
General Physical Exam
General Presentation: no apparent distress
General age: appears younger than age
General Skin: warm and dry
General Habitus: poor hygiene
General Mental: alert
General Hydration: appears well hydrated
ENT Exam
ENT Exam: TM's normal, pharynx normal and neck supple
Eye Exam
Eye Exam: EOMI
Cardiovascular Exam
Cardiovascular Exam: regular rate/rhythm, no edema, no murmur and normal peripheral pulses
Pulmonary Exam
Pulmonary Exam: lungs clear, no respiratory distress, no rales, chest non tender, no crackles, no rhonchi, no wheezing and no cough
Gastrointestinal Exam
Gastrointestinal Exam: normal bowel sounds, non tender, soft, no organomegaly, no pulsatile mass and non distended
Musculoskeletal Exam
Musculoskeletal Exam: full ROM and no edema
Skin Exam
Skin Exam: normal color, warm/dry, no rash and no petechia
Psychiatric Exam
Psychiatric Exam: normal mood/affect
Course
Orders/Labs/Results
Orders:
Orders
08/04/23 21:21
Electrocardiogram (*1) Urgent
Reason for Study: Syncope
08/04/23 21:22
EKG- Treatment ONCE
08/04/23 21:31
Alcohol Urgent
CMP [Comprehensive Metabolic Panel] Urgent
Complete Blood Count/With Diff Urgent
08/04/23 23:42
0.9% Sodium Chloride 1000 ml [Nss] 1,000 ml IV BOLUS
08/05/23 00:06
Add On- LAB Urgent
Tests Added?: Alcohol
Abnormal Lab Results
08/04/23 08/05/23
21:31 00:31
Absolute Monos (auto) 0.7 H 10^3/uL
(0.1-0.6)
Sodium 133 L mmol/L
(135-145)
BUN 18 H mg/dl
(7-17)
Glucose 270 H mg/dl
(70-99)
POC Glucose 266 H mg/dl
(70-99)
08/04/23 21:31
08/04/23 21:31
Sodium slightly low. Very slight Dehydration. Glucose nonfasting. Alcohol negative
Vital Signs
Initial and Last Documented VS:
Initial Vital Signs
Temp Pulse Resp BP Pulse Ox
98.2 F 102 22 126/92 100
08/04/23 21:17 08/04/23 21:17 08/04/23 21:17 08/04/23 21:17 08/04/23 21:17
Last Documented Vital Signs
Temp Pulse Resp BP Pulse Ox
98.2 F 84 21 107/71 98
08/04/23 21:17 08/05/23 01:00 08/05/23 01:00 08/05/23 01:00 08/04/23 23:01
MDM/Problems Addressed
Differential Diagnosis Includes:
Diabetic
MDM/Problems Addressed:
This is a 32 year old female that comes in with c/o eating hamburger's, milk shakes and then getting into the shower later and was not feeling well. Patient was here yesterday for issues with her blood sugar.
Will check labs, give IV fluids and recheck blood sugar. Patient has not taken her Lantus 20 Units that she normally takes at night.
Will discharge home. Explained that she needs to follow up with the PCP and also should see a group worker. Patient to return with any concerns.
Chronic conditions affecting care: DM
Acute Exacerbation and/or Progression of Chronic Illness: DM
*Pulse Oximetry
Patient hypoxic: no
*EKG
Interpreted by ED Provider?: NA
Rate: EKG- N/A
*Set Up Worker Interpretation
Rate: normal
Heart Rate: 84
Rhythm: sinus
*Critical Care Note
Total Time (30-74mins, 75-104mins- exclusive of procedures): Not Applicable
ED Attending Note
-
Portions of this chart may have been created with voice recognition software.� Occasional wrong word or��sound alike� substitutions may have occurred due to the inherent limitations of voice recognition software.
Discharge Plan
Departure
Patient Disposition: Home (Routine Discharge)
Date of Disposition: 08/05/23
Time of Disposition: 01:41
Patient with high blood pressure during this ER visit?: No
Condition: Good
Covid-19: Not Applicable
Discharge Problem:
Hyperglycemia
Instructions: Diabetes Type 1, Adult (DC)
Prescriptions:
No Action
insulin glargine [Lantus Solostar U-100 Insulin] 300 UNITS/3 ML insulin pen
20 units SC HS
losartan 50 mg Tablet
50 mg PO HS
omeprazole 20 mg Capsule,Delayed Release(Dr/Ec)
20 mg PO DAILYPRN PRN (Reason: refulx)
ondansetron [Zofran ODT] 4 mg Tablet,Disintegrating
4 mg PO PRN PRN (Reason: nausea)
duloxetine [Cymbalta] 60 mg Capsule,Delayed Release(Dr/Ec)
90 mg PO DAILY
divalproex 500 mg tablet,delayed release (DR/EC)
500 mg PO BID
lorazepam [Ativan] 0.5 mg Tablet
0.5 mg PO TID PRN (Reason: anxiety)
insulin lispro 100 unit/mL Solution
3 - 13 sliding scale dose SC MEALS
aripiprazole [Abilify] 30 mg Tablet
30 mg PO DAILY
Nurtec ODT 75 mg Tablet,Disintegrating
75 mg PO DAILY
Referrals:
Debby Christianson MD [Family Provider] - Follow up in 2-3 days
Activity Restrictions/Additional Instructions:
As discussed, your blood work shows slight Dehydration and your Blood sugar was 270. Please increase your water intake to 8-8oz glasses daily. Please take your Insulin as directed when you get home. Follow up with the family doctor for recheck. YOU
REALLY NEED TO SEE A ECG TECHNICIAN TO HELP WITH YOUR DIET. IF YOU HAVE ANY OTHER CONCERNS PLEASE RETURN TO THE EMERGENCY ROOM.
Interventions
Interventions:
*Risk Screen - Suicide Last Done: 08/04/23 23:22
*General Assessment Last Done: 08/04/23 23:22
*Neglect/Abuse Screening Last Done: 08/04/23 23:22
ED- Fall Risk Assessment Last Done: 08/04/23 23:48
*ED COVID-19 Vaccine History Last Done: 08/04/23 23:22
ED- Cardiac Assessment Last Done: 08/04/23 23:22
ED- Neurological Assessment Last Done: 08/04/23 23:22
Discharge Date and Time
Print Language: CROATIAN
[2023-08-05 00:32] LABS: Glucose - Point of Care 266 mg/dl (70-99)
[2023-08-05 01:00] VITALS: BP 107/71
[2023-08-05 01:08] LABS: Alcohol None Detected
== END 2023-08-05 01:54 | disposition home or self-care (01) ==
LOC: EMR 21:16
PROVIDERS: EMERGENCY PHYSICIAN Emergency Medicine; FAMILY PHYSICIAN Student in an Organized Health Care Education/Training Program
DX: R55 Syncope and collapse (principal); R12 Heartburn; E86.0 Dehydration; E11.65 Type 2 diabetes mellitus with hyperglycemia; F32.A Depression, unspecified; F41.9 Anxiety disorder, unspecified; I10 Essential (primary) hypertension; F43.10 Post-traumatic stress disorder, unspecified; E11.43 Type 2 diabetes mellitus with diabetic autonomic (poly)neuropathy; K31.84 Gastroparesis; R56.9 Unspecified convulsions; G43.909 Migraine, unspecified, not intractable, without status migrainosus; D64.9 Anemia, unspecified; K21.9 Gastro-esophageal reflux disease without esophagitis; L30.9 Dermatitis, unspecified; Z87.440 Personal history of urinary (tract) infections; Z79.4 Long term (current) use of insulin; Z88.8 Allergy status to other drugs, medicaments and biological substances
CPT/HCPCS: 99284; 96360; 80053; 82077; 82962; 85025; 93005

== ENCOUNTER 2023-08-11 20:10 | Emergency (ER) | payer OTHER, SELFPAY ==
[2023-08-11 20:13] VITALS: BP 169/107; BMI 31.1
[2023-08-11 20:41] LABS: Glucose - Point of Care 420 mg/dl (70-99)
[2023-08-11 21:07] LABS: % Basophils 0.4 % (0-2); % Immature Granulocytes 0.4 % (0-0.5); % Lymphocytes 36.4 % (20.5-51.1); % Monocytes 7.2 % (1.7-9.3); % Neutrophils 54.6 % (42.2-75.2); Absolute Eosinophils 0.1 10^3/uL (0-0.7); Absolute Lymphocytes 2.9 10^3/uL (1.2-3.4); Absolute Monocytes 0.6 10^3/uL (0.1-0.6); Absolute Neutrophils 4.4 10^3/uL (1.4-6.5); Hematocrit 35.9 % (37.0-47.0); Hemoglobin 12.7 g/dL (12.0-16.0); Mean Corp Hgb Conc. 35.4 g/dL (33.0-37.0); Mean Corpuscular Hgb 29.6 pg (27.0-31.0); Mean Corpuscular Volume 83.7 fL (81.0-99.0); Mean Platelet Volume 9.3 fL (7.4-10.4); Nucleated Red Blood Cells % 0 %; Platelet Count 292 10^3/uL (130-400); Red Blood Cell Count 4.29 10^6/uL (4.20-5.40); Red Cell Dist. Width 12.9 % (11.5-14.5); White Blood Cell Count 8.1 10^3/uL (4.8-10.8)
[2023-08-11 21:12] LABS: Urine Albumin Negative (Neg - Trace); Urine Bilirubin Negative (Negative); Urine Character Slightly Cloudy (Clear); Urine Color Yellow; Urine Glucose 3+ (Negative); Urine Ketone 1+ (Negative); Urine Leukocyte 1+ (Negative); Urine Nitrite Negative (Negative); Urine Occult Blood Negative (Negative); Urine Specific Gravity 1.015 (<1.030); Urine Urobilinogen Negative (Neg - 1+)
[2023-08-11 21:17] LABS: HCG, Serum Qualitative Screen Negative
[2023-08-11 21:21] LABS: ALT (SGPT) 14 U/L (0-35); AST (SGOT) 14 U/L (14-36); Albumin 4.2 g/dl (3.5-5.0); Alkaline Phosphatase 71 U/L (38-126); Blood Urea Nitrogen 18 mg/dl (7-17); Calcium 9.5 mg/dl (8.4-10.2); Carbon Dioxide 26 mmol/L (22-30); Chloride 98 mmol/L (98-107); Estimated Creatinine Clearance > 125 ml/min; Glucose 431 mg/dl (70-99); Potassium 4.3 mmol/L (3.5-5.1); Sodium 130 mmol/L (135-145); Total Bilirubin 0.2 mg/dl (0.2-1.3); Total Protein 6.9 g/dl (6.3-8.2); Urine Squamous Cell >30 /LPF (Few); eGFR > 60.00
[2023-08-11 21:23] LABS: Urine Red Blood Cell None Seen /HPF (0-2); Urine White Cell 26-30 /HPF (0-5); Urine Yeast Moderate (Negative)
[2023-08-11 21:24] LABS: Alcohol None Detected; Urine Bacteria Few (Negative)
[2023-08-11 21:25] LABS: Amphetamines Negative (Negative); Barbiturates Negative (Negative); Benzodiazepines Negative (Negative); Buprenorphine Negative (Negative); Cocaine Negative (Negative); Marijuana Negative (Negative); Methadone Negative (Negative); Methamphetamines Negative (Negative); Opiates Negative (Negative); Phencyclidine Negative (Negative); Tricyclic Antidepressants Negative (Negative)
--- NOTE | 2023-08-11 21:30 | EDRN ---
Report recieved, introduced myself to patient and refreshed vitals, patient is on 1:1 with security, patient is tearful
--- NOTE | 2023-08-11 21:41 | ED.GENMED ---
History of Present Illness
General
Chief Complaint: Psychiatric Problem
Source: patient
Exam Limitations: none
Time Seen by Provider: 08/11/23 21:07
Travel History
Have you had any contact with someone who has COVID-19?: No
Do you have any symptoms of coronavirus? Fever > 100 degrees, chills, cough, shortness of breath, sore throat, loss of taste or smell, muscle aches, or headache?: No
History of Present Illness
History of Present Illness:
This is a 32 year old female that comes in with c/o being afraid. States that her X-boyfriend his friend was bothering her. States that she called police as she was afraid that he would come to the house. States that she is not suicidal. States
that she had some nausea and a headache. Denies any fever, chills, chest pain, SOB, vomiting, diarrhea, dizziness, urinary burning.
Past History
Past History
ED Past Medical History: GERD, HTN, IDDM, Seizures, Psychiatric (Anxiety, Depression, PTSD) and Other (absent Seizures, Migraines, Gastroparesis, UTI, Eczema, Aplastic Anemia, )
ED Past Surgical History: None and Gynecological (D&C)
Patient has exhibited threatening behavior?: No
PSI?: No
Social History
Tobacco: Non-smoker
Alcohol: Occasional
Drug: None
Personal: Single
Living: with family
Employment: Not employed
Family History
Family History: CAD
Review of Systems
Review of Systems
All Other Systems: ROS reviewed and negative except as documented in HPI and ROS
Constitutional: Reports no symptoms; Denies fever or chills
EENT: Reports no symptoms
Respiratory: Reports no symptoms; Denies cough or trouble breathing
Cardiac: Reports no symptoms; Denies chest pain
ABD/GI: Reports nausea; Denies abdominal pain, vomiting or diarrhea
: Reports no symptoms; Denies dysuria, frequency or urgency
Musculoskeletal: Reports no symptoms
Skin: Reports no symptoms
Neurological: Denies dizzy or headache
Psychiatric: Reports anxiety; Denies suicidal
Phy Exam
General Physical Exam
General Presentation: no apparent distress
General age: appears stated age
General Skin: warm and dry
General Habitus: poor hygiene
General Mental: anxious
General Hydration: appears well hydrated
ENT Exam
ENT Exam: TM's normal, pharynx normal and neck supple
Eye Exam
Eye Exam: EOMI
Cardiovascular Exam
Cardiovascular Exam: regular rate/rhythm, no edema and normal peripheral pulses
Pulmonary Exam
Pulmonary Exam: lungs clear, no respiratory distress, no rales, chest non tender, no crackles, no rhonchi, no wheezing and no cough
Gastrointestinal Exam
Gastrointestinal Exam: normal bowel sounds, non tender, soft, no organomegaly, no pulsatile mass and non distended
Musculoskeletal Exam
Musculoskeletal Exam: full ROM and no edema
Skin Exam
Skin Exam: normal color, warm/dry, no rash and no petechia
Psychiatric Exam
Psychiatric Exam: anxious
Course
Orders/Labs/Results
Orders:
Orders
08/11/23 20:56
Test Result ONCE
08/11/23 20:58
Alcohol Urgent
B-Hydroxybutyrate Urgent
Complete Blood Count/With Diff Urgent
Comprehensive Metabolic Panel Urgent
HCG, Serum Qualitative Screen Urgent
Urinalysis Reflex To Culture Urgent
Date Specimen was Collected: 08/11/23
Time Specimen was Collected: 20:56
Urine Drug Abuse Screen Urgent
Date Specimen was Collected: 08/11/23
Time Specimen was Collected: 20:56
Urine Microscopic Reflex Cult Urgent
Urine Culture Urgent
YVETTE Source: U
Specimen Description:
Date Specimen was Collected: 08/11/23
Time Specimen was Collected: 20:56
08/11/23 21:41
0.9% Sodium Chloride 1000 ml [Nss] 1,000 ml IV BOLUS
Insulin Aspart [NOVOLOG vial] 14 units SC NOW STA
08/12/23 01:08
Urinalysis Reflex To Culture Urgent
Date Specimen was Collected: 08/12/23
Time Specimen was Collected: 00:14
Abnormal Lab Results
08/11/23 08/11/23 08/11/23
20:39 20:58 22:39
Hct 35.9 L %
(37.0-47.0)
Sodium 130 L mmol/L
(135-145)
BUN 18 H mg/dl
(7-17)
Creatinine 0.5 L mg/dL
(0.6-1.0)
Glucose 431 H mg/dl
(70-99)
Urine Ketones 1+ A
(Negative)
Leukocyte Esterase Rfl 1+ A
(Negative)
Urine WBC (Reflex) 26-30 A /HPF
(0-5)
Urine Bacteria (Reflex) Few A
(Negative)
Urine Yeast Moderate A
(Negative)
Urine Glucose 3+ A
(Negative)
POC Glucose 420 H mg/dl 340 H mg/dl
(70-99) (70-99)
08/12/23 08/12/23
00:10 01:08
Hct
Sodium
BUN
Creatinine
Glucose
Urine Ketones Trace A
(Negative)
Leukocyte Esterase Rfl
Urine WBC (Reflex)
Urine Bacteria (Reflex)
Urine Yeast
Urine Glucose 3+ A
(Negative)
POC Glucose 222 H mg/dl
(70-99)
08/11/23 20:58
08/11/23 20:58
Sodium low. Very slight Dehydration. Hyperglycemia, Urine contaminated. HCG negative, Urine drug negative. DB-Hydroxybutyrate normal at 0.20
Vital Signs
Initial and Last Documented VS:
Initial Vital Signs
Temp Pulse Resp BP Pulse Ox
98 F 110 20 169/107 100
08/11/23 20:13 08/11/23 20:13 08/11/23 20:13 08/11/23 20:13 08/11/23 20:13
Last Documented Vital Signs
Temp Pulse Resp BP Pulse Ox
98 F 110 20 137/91 100
08/11/23 20:13 08/11/23 20:13 08/11/23 20:13 08/11/23 21:57 08/11/23 20:13
MDM/Problems Addressed
Differential Diagnosis Includes:
Hyperglycemia, Suicidal, Anxiety, Parnoid
MDM/Problems Addressed:
This is a 32 year old female that comes in with after she called police. States that her X-boyfriend, his friend was bothering her. States that she was afraid that he was going to come to her house. Patient denies any suicidal thoughts.
Spoke with Crisis and told that patient was threatening Suicide and threatened to kill her parents. Parents are filling a 302. Will get labs. Give IV fluids and Insulin to help control her blood sugar.
Blood sugar down to 222. The 302 was upheld.
Chronic conditions affecting care: DM and Psychiatric illness
Acute Exacerbation and/or Progression of Chronic Illness: DM and Psychiatric illness
*Pulse Oximetry
Patient hypoxic: no
*EKG
Interpreted by ED Provider?: NA
Rate: EKG- N/A
*Concession Supervisor Interpretation
Rate: Concession Supervisor- N/A
*Critical Care Note
Total Time (30-74mins, 75-104mins- exclusive of procedures): Not Applicable
ED Attending Note
-
Portions of this chart may have been created with voice recognition software.� Occasional wrong word or��sound alike� substitutions may have occurred due to the inherent limitations of voice recognition software.
Discharge Plan
Departure
Patient Disposition: Psych Facility
Date of Disposition: 08/12/23
Time of Disposition: 02:03
Patient with high blood pressure during this ER visit?: Yes
Condition: Good
Covid-19: Not Applicable
Discharge Problem:
Depression with suicidal ideation, Chronic posttraumatic stress disorder, Diabetes
Prescriptions:
No Action
insulin glargine [Lantus Solostar U-100 Insulin] 300 UNITS/3 ML insulin pen
20 units SC HS
losartan 50 mg Tablet
50 mg PO HS
ondansetron [Zofran ODT] 4 mg Tablet,Disintegrating
4 mg PO PRN PRN (Reason: nausea)
duloxetine [Cymbalta] 60 mg Capsule,Delayed Release(Dr/Ec)
90 mg PO DAILY
divalproex 500 mg tablet,delayed release (DR/EC)
500 mg PO BID
lorazepam [Ativan] 0.5 mg Tablet
0.5 mg PO TID PRN (Reason: anxiety)
insulin lispro 100 unit/mL Solution
3 - 13 sliding scale dose SC MEALS
aripiprazole [Abilify] 30 mg Tablet
30 mg PO DAILY
Nurtec ODT 75 mg Tablet,Disintegrating
75 mg PO DAILY
Referrals:
UNKNOWN - PT NOT,INTERVIEWE [Family Provider] -
Activity Restrictions/Additional Instructions:
Please follow up as directed by Crisis.
Interventions
Interventions:
*Risk Screen - Suicide Last Done: 08/11/23 20:13
*General Assessment Last Done: 08/11/23 20:35
*Neglect/Abuse Screening Last Done: 08/11/23 20:13
ED- Fall Risk Assessment Last Done: 08/11/23 20:13
*ED COVID-19 Vaccine History Last Done: 08/11/23 20:13
ED-Psychological Assessment Last Done: 08/11/23 20:36
Discharge Date and Time
Print Language: JAPANESE
[2023-08-11] MEDS: NSS 1000 IV (21:49)
[2023-08-11] MEDS: NOVOLOG vial 14 UNITS SC (21:50)
[2023-08-11 21:57] VITALS: BP 137/91
--- NOTE | 2023-08-11 22:40 | EDRN ---
Patient told security she wasn't feeling well, into the room to recheck blood sugar which remains stable, she is upset and asking where her mom is, informed her would call crisis and find out, after speaking with crisis, mom filed 302 which was
upheld by delegate and telepsych will will speaking with her, patient changed into paper scrubs, patient very tearful telling me over and over she is not crazy and doesn't understand why this is happening, informed her she will be able to talk with
crisis and telepsych about everything. patient ambulated into restroom
[2023-08-11 22:43] LABS: Glucose - Point of Care 340 mg/dl (70-99)
[2023-08-12 00:11] LABS: Glucose - Point of Care 222 mg/dl (70-99)
--- NOTE | 2023-08-12 01:00 | EDRN ---
Spoke with crisis on the phone, telepsych upheld the 302, patient remains on a 1:1 with security at bedside and safe environment maintained
[2023-08-12 01:18] LABS: Urine Albumin Negative (Neg - Trace); Urine Bilirubin Negative (Negative); Urine Character Clear (Clear); Urine Color Yellow; Urine Glucose 3+ (Negative); Urine Ketone Trace (Negative); Urine Leukocyte Negative (Negative); Urine Nitrite Negative (Negative); Urine Occult Blood Negative (Negative); Urine Specific Gravity 1.025 (<1.030); Urine Urobilinogen Negative (Neg - 1+)
[2023-08-12 04:04] LABS: Glucose - Point of Care 156 mg/dl (70-99)
--- NOTE | 2023-08-12 09:02 | EDRN ---
Crisis contacted in regards to patient requiring her home medication order, Crisis stated that they would talk with Dr. Rowland when he arrives.
[2023-08-12 09:52] LABS: Glucose - Point of Care 257 mg/dl (70-99)
[2023-08-12 10:54] VITALS: BP 142/88
--- NOTE | 2023-08-12 11:28 | EDRN ---
Pharmacy contacted for medications for patient.
[2023-08-12 12:48] LABS: Glucose - Point of Care 225 mg/dl (70-99)
--- NOTE | 2023-08-12 12:54 | EDRN ---
Wendy villasenorecked, currently waiting on insulin pen from pharmacy
[2023-08-12] MEDS: CYMBALTA DELAYED RELEASE 90 MG PO (12:57)
[2023-08-12] MEDS: ATIVAN 1 MG PO (12:58)
[2023-08-12] MEDS: DEPAKOTE (12 HR RELEASE) 500 MG PO (12:58)
--- NOTE | 2023-08-12 13:07 | EDRN ---
This RN went to medicate patient with insulin pen. No titration protocol was listed under insulin, pharmacy made aware and order being updated.
== END 2023-08-12 13:10 ==
LOC: EMR 20:10
PROVIDERS: Clinical Nurse Specialist Family Health; EMERGENCY PHYSICIAN Emergency Medicine
DX: R45.851 Suicidal ideations (principal); F32.A Depression, unspecified; E11.65 Type 2 diabetes mellitus with hyperglycemia; F43.12 Post-traumatic stress disorder, chronic; I10 Essential (primary) hypertension
CPT/HCPCS: 99285; 96360; 96372; 80053; 80306; 81003; 81015; 82010; 82077; 82962; 84703; 85025; 87086; 93005

== ENCOUNTER 2024-03-30 19:10 | Emergency (ER) | payer OTHER, SELFPAY ==
[2024-03-30 19:12] VITALS: BP 171/102
[2024-03-30 19:40] LABS: Glucose - Point of Care 425 mg/dl (70-99)
--- NOTE | 2024-03-30 19:46 | ED.GENMED ---
History of Present Illness
General
Chief Complaint: Crisis Evaluation
Source: patient and family
Exam Limitations: none
Time Seen by Provider: 03/30/24 19:25
Nursing documentation reviewed up to this point in time: agreed with
History of Present Illness
History of Present Illness:
Patient presents to ED for evaluation after she expressed suicidal thoughts to information officer this afternoon. Per patient and information officer, who checked in on the patient, as patient is currently under house arrest, patient was noted to be
leaving the house, which is against her current probation. Patient states that she was on her way to [place] to meet a friend. When she was told that she could not leave the house, she became angry and made suicidal comments. Patient
locked herself inside her bedroom initially, but was able to be calmed down with conversation. Upon arrival to ED, patient is alert, awake, and oriented, and cooperative. Patient states that she cannot does not have any suicidal thoughts, but was
angry that she cannot leave the house. Denies recent illness. Denies recent change in medications or diet. Per parents, who lives with the patient, patient has been taking all of her medications, as prescribed. However, patient has had increased
level of anxiety recently, due to upcoming court appearance.
Past History
Past History
ED Past Medical History: GERD, HTN, IDDM, Seizures, Psychiatric (Anxiety, Depression, PTSD) and Other (absent Seizures, Migraines, Gastroparesis, UTI, Eczema, Aplastic Anemia, )
ED Past Surgical History: None and Gynecological (D&C)
Patient has exhibited threatening behavior?: No
PSI?: No
Social History
Tobacco: Non-smoker
Alcohol: Occasional
Drug: None
Personal: Single
Living: with family
Employment: Not employed
Family History
Family History: CAD
Review of Systems
Review of Systems
Allergies reviewed?: Yes
All Other Systems: ROS reviewed and negative except as documented in HPI and ROS
Constitutional: Reports no symptoms
Respiratory: Reports no symptoms
Cardiac: Reports no symptoms
ABD/GI: Reports no symptoms
Musculoskeletal: Reports no symptoms
Skin: Reports no symptoms
Neurological: Reports no symptoms
Psychiatric: Reports anxiety and suicidal
Phy Exam
Physical Exam
Physical Exam:
Physical Exam
General: no apparent distress, not acutely ill. afebrile
Head: nc/at. eomi
Neck: supple. no meningeal signs.
Heart: s1/s2 regular rate and rhythm, no murmur. equal radial pulses.
Lungs: no acute respiratory distress. clear bilaterally
Abdomen: normal bowel sounds. not tender.
Neuro: alert and oriented. no focal neurological deficits
Skin: no rash
Psychiatric: well kept. interactive and cooperative
Extremities: no edema. no calf tenderness.
Course
Orders/Labs/Results
Orders:
Orders
03/30/24 19:42
Crisis Consult Urgent
Reason for Consult: suicidal ideation
03/30/24 19:51
Insulin Aspart [NOVOLOG vial] 10 units SC NOW STA
Abnormal Lab Results
03/30/24 03/30/24
19:38 21:00
POC Glucose 425 H mg/dl 355 H mg/dl
(70-99) (70-99)
Vital Signs
Initial and Last Documented VS:
Initial Vital Signs
Temp Pulse Resp BP Pulse Ox
98 F 138 18 171/102 97
03/30/24 19:12 03/30/24 19:12 03/30/24 19:12 03/30/24 19:12 03/30/24 19:12
Last Documented Vital Signs
Temp Pulse Resp BP Pulse Ox
98 F 103 20 106/86 99
03/30/24 19:12 03/30/24 21:59 03/30/24 21:59 03/30/24 21:59 03/30/24 21:59
MDM/Problems Addressed
MDM/Problems Addressed:
Patient with history of insulin-dependent diabetes, and currently working with new collateral analyst, has had elevated blood sugar, which is being monitored by her collateral analyst, with new medication regimen recommendation every week. Denies
abdominal pain. Denies nausea or vomiting.
Patient's presenting symptoms, and today's episode, likely circumstantial. Patient does not have any suicidal ideation at this time, but states that her words were spoken in anger, which she regrets. Patient evaluated by telepsychiatry, who also
feels that patient can be discharged home, as she has good support at home along with ongoing measures with an outpatient therapist. Parents feel comfortable taking the patient home at this time.
Hyperglycemia improving. Patient/parents will continue to work with her collateral analyst.
Patient's information officer, Matthew Mayes, notified of patient's disposition.
*Critical Care Note
Total Time (30-74mins, 75-104mins- exclusive of procedures): Not Applicable
ED Attending Note
-
Portions of this chart may have been created with voice recognition software.� Occasional wrong word or��sound alike� substitutions may have occurred due to the inherent limitations of voice recognition software.
Discharge Plan
Departure
Patient Disposition: Home (Routine Discharge)
Date of Disposition: 03/30/24
Time of Disposition: 21:50
Patient with high blood pressure during this ER visit?: Yes
Discharge Problem:
Anxiety, Hyperglycemia
Instructions: Anxiety, Adult (DC), High Blood Sugar, Adult ED
Prescriptions:
No Action
insulin glargine [Lantus Solostar U-100 Insulin] 300 UNITS/3 ML insulin pen
20 units SC HS
losartan 50 mg Tablet
50 mg PO HS
duloxetine [Cymbalta] 60 mg Capsule,Delayed Release(Dr/Ec)
90 mg PO DAILY
divalproex 500 mg tablet,delayed release (DR/EC)
500 mg PO BID
lorazepam [Ativan] 0.5 mg Tablet
0.5 mg PO TID PRN (Reason: anxiety)
insulin lispro 100 unit/mL Solution
3 - 13 sliding scale dose SC MEALS
aripiprazole [Abilify] 30 mg Tablet
30 mg PO DAILY
Nurtec ODT 75 mg Tablet,Disintegrating
75 mg PO DAILY PRN (Reason: migraine )
ondansetron 4 mg tablet,disintegrating
4 mg PO Q8HPRN PRN (Reason: NAUSEA)
Referrals:
Debby Christianson MD [Family Provider] -
Activity Restrictions/Additional Instructions:
As discussed, please continue to follow-up with your outpatient therapist as well as collateral analyst for continual evaluation and treatment.
Interventions
Interventions:
*Risk Screen - Suicide Last Done: 03/30/24 19:12
*General Assessment Last Done: 03/30/24 19:12
*Neglect/Abuse Screening Last Done: 03/30/24 19:12
*ED COVID-19 Vaccine History Last Done: 03/30/24 21:49
*Nursing Disposition Last Done: 03/30/24 22:09
ED-Psychological Assessment Last Done: 03/30/24 21:49
Discharge Date and Time
Discharge Date/Time: 03/30/24 22:16
Print Language: PERSIAN
[2024-03-30] MEDS: NOVOLOG vial 10 UNITS SC (19:59)
[2024-03-30 21:01] LABS: Glucose - Point of Care 355 mg/dl (70-99)
[2024-03-30 21:59] VITALS: BP 106/86
== END 2024-03-30 22:16 | disposition home or self-care (01) ==
LOC: EMR 19:10
PROVIDERS: EMERGENCY PHYSICIAN Emergency Medicine; FAMILY PHYSICIAN Student in an Organized Health Care Education/Training Program
DX: F41.9 Anxiety disorder, unspecified (principal); E11.65 Type 2 diabetes mellitus with hyperglycemia; I10 Essential (primary) hypertension; K21.9 Gastro-esophageal reflux disease without esophagitis; Z79.4 Long term (current) use of insulin
CPT/HCPCS: 96372; 99284; 82962

== ENCOUNTER → 2024-10-01 12:44 | Outpatient (REF) | payer OTHER, SELFPAY | LOC: HWRAD 12:44 | PROVIDERS: ATTENDING PHYSICIAN Family Medicine | DX: N92.6 Irregular menstruation, unspecified (principal) | CPT/HCPCS: 76856 ==